=== PATIENT | female | born 1970 | race Hispanic/Latino ===

== ENCOUNTER 2021-10-07 07:48 | Observation (INO) | payer BC ==
[2021-10-07] MEDS ORDERED: Ondansetron PF 4 MG/2 ML Vial ONE (08:09)
[2021-10-07] MEDS ORDERED: Morphine 4 MG/ML VIAL ONE ×2 (08:09→16:16)
[2021-10-07] MEDS ORDERED: Ketorolac Tromethamine 30 MG/ML VIAL ONE ×3 (08:09→14:25)
[2021-10-07 08:39] LABS: #Eosinphils 0.1 10x3/uL (0.0-0.5); #Monocytes 0.4 10x3/uL (0.0-1.1); #Neutrophils 5.1 10x3/uL (1.5-8.4); %Basophils 0.4 % (0.0-2.0); %Eosinophils 0.7 % (0.0-6.0); %Lymphocytes 21.4 % (18.0-47.0); %Monocytes 4.9 % (0.0-10.0); %Neutrophils 72.3 % (40.0-75.0); Hemoglobin 14.1 g/dL (12.0-15.5); Mean Corpuscular HGB CONC 35.7 g/dL (32.0-36.0); Mean Corpuscular Hemoglobin 33.3 pg (27.0-33.0); Mean Corpuscular Volume 93.2 fl (81.6-98.3); Platelet Count 257 10x3/uL (150-450); RBC Distribution Width 11.9 % (11.5-14.5); Red Blood Cell (RBC) Count 4.24 10x6/uL (3.90-5.03); White Blood Cell (WBC) Count 7.1 10x3/uL (3.5-10.5)
[2021-10-07 08:44] LABS: ALT (SGPT) 20 U/L (8-55); AST (SGOT) 22 U/L (5-34); Albumin 4.1 g/dL (3.5-5.0); Alkaline Phosphatase 77 U/L (40-110); Anion Gap 16 mmol/L (10-20); BUN (Urea Nitrogen) 11 mg/dL (7.0-18.7); Calc. Creatinine Clearance 0 mL/min (70-130); Calcium 9.1 mg/dL (7.8-10.44); Carbon Dioxide 23 mmol/L (22-29); Chloride 105 mmol/L (98-107); Estimated GFR 84; Globulin 2.9 g/dL (2.4-3.5); Glucose 124 mg/dL (70-105); Sodium 140 mmol/L (136-145)
[2021-10-07] MEDS ORDERED: HYDROmorphone 0.5 MG/0.5 ML SYRINGE ONE (11:49)
[2021-10-07 12:05] LABS: Bilirubin Neg (Negative); Blood, Urine Negative (Negative); Clarity Clear (Clear); Glucose, Urine (Dipstick) Normal (Negative); Ketone, Urine Negative (Negative); Leukocyte Negative (Negative); Nitrite Negative (Negative); Protein, Urine (Dipstick) Negative (Neg-Trace); Urobilinogen Normal mg/dL (Less than 2)
[2021-10-07] MEDS ORDERED: Acetaminophen 650 MG Suppository PR PRN (14:05)
[2021-10-07] MEDS ORDERED: Guaifenesin DM 100-10/5 ML UDCUP PO PRN (14:05)
[2021-10-07] MEDS ORDERED: Acetaminophen 325 MG TAB PO PRN (14:05)
[2021-10-07] MEDS ORDERED: Ondansetron ODT 4 MG TAB PO PRN (14:05)
[2021-10-07] MEDS ORDERED: Ondansetron PF 4 MG/2 ML Vial IVP PRN (14:05)
[2021-10-07] MEDS ORDERED: HYDROmorphone 0.5 MG/0.5 ML SYRINGE SLOW IVP PRN (14:08)
[2021-10-07] MEDS ORDERED: Iopamidol 300 61% 100 ML VIAL FS ONE (14:43)
[2021-10-07] MEDS ORDERED: Pantoprazole 40 MG VIAL IVP SCH (17:00)
[2021-10-07] MEDS: Sodium Chloride 0.9% 1,000 ML IV SCH (17:12)
[2021-10-07] MEDS: HYDROcodone/Acetaminophen 10/325 mg Tablet PO PRN ×2 (17:58→21:39)
[2021-10-07] MEDS ORDERED: Morphine 4 MG/ML VIAL SLOW IVP PRN (18:53)
[2021-10-07 19:21] VITALS: BMI 29.9
[2021-10-07] MEDS: Ketorolac Tromethamine 30 MG/ML VIAL IVP PRN (20:02)
[2021-10-07 20:56] LABS: SARS-CoV-2 NAA Rapid Test Not Detected (NotDetected)
[2021-10-08] MEDS: Ketorolac Tromethamine 30 MG/ML VIAL IVP PRN ×4 (01:48→23:15)
[2021-10-08] MEDS: Pantoprazole 40 MG VIAL IVP SCH (09:14)
[2021-10-08] MEDS: Sodium Chloride 0.9% 1,000 ML IV SCH (09:15)
[2021-10-08] MEDS ORDERED: Lidocaine 5% Patch TD SCH (10:30)
[2021-10-08] MEDS ORDERED: Gabapentin 300 MG CAP PO SCH (10:30)
[2021-10-08] MEDS ORDERED: tiZANidine HCl 4 MG TAB PO SCH (10:30)
[2021-10-08] MEDS: Gabapentin 300 MG CAP PO SCH ×2 (16:11→19:57)
[2021-10-08] MEDS: tiZANidine HCl 4 MG TAB PO SCH (19:58)
[2021-10-08] MEDS: HYDROcodone/Acetaminophen 10/325 mg Tablet PO PRN (19:59)
[2021-10-08] MEDS: LIDOCAINE Patch Removal TOP SCH ×2 (23:14→23:20)
[2021-10-09] MEDS: Sodium Chloride 0.9% 1,000 ML IV SCH (00:33)
[2021-10-09] MEDS: HYDROcodone/Acetaminophen 10/325 mg Tablet PO PRN ×3 (04:00→13:57)
[2021-10-09] MEDS: Gabapentin 300 MG CAP PO SCH (08:25)
[2021-10-09] MEDS: Pantoprazole 40 MG VIAL IVP SCH (08:26)
[2021-10-09] MEDS: tiZANidine HCl 4 MG TAB PO SCH (08:27)
[2021-10-09] MEDS ORDERED: Lidocaine 5% Patch TD SCH (10:30)
[2021-10-09 12:12] VITALS: BP 114/56; TEMP 98.2
== END 2021-10-09 14:45 | disposition home or self-care (01) ==
LOC: CSHERS 07:48 → CSHTELE 16:44
PROVIDERS: ADMIT Family Medicine; ATTEND Family Medicine
DX: M48.061 Spinal stenosis, lumbar region without neurogenic claudication (principal); M48.07 Spinal stenosis, lumbosacral region; M51.36 Other intervertebral disc degeneration, lumbar region; M51.37 Other intervertebral disc degeneration, lumbosacral region; N83.202 Unspecified ovarian cyst, left side; R10.32 Left lower quadrant pain; K44.9 Diaphragmatic hernia without obstruction or gangrene; Z87.19 Personal history of other diseases of the digestive system; Z88.0 Allergy status to penicillin; Z20.822 Contact with and (suspected) exposure to COVID-19
CPT/HCPCS: 36415; 72148; 74177; 76856; 80053; 81003; 83690; 85025; 85652; 86140; 94760; 96361; 96374; 96375; 96376; C9113; G0378; J1170; J1885; J2270; J2405; J7050; Q9967; U0002